=== PATIENT | male | born 1970 | race Caucasian/White ===

== ENCOUNTER 2018-07-26 16:03 | Emergency (ER) | payer OTHER ==
[2018-07-26 16:03] VITALS: BMI 27.3
[2018-07-26] MEDS ORDERED: Morphine 4 MG/ML VIAL ONE (16:17)
[2018-07-26] MEDS ORDERED: Morphine 4 MG/ML VIAL IV ONE (16:21)
[2018-07-26] MEDS ORDERED: Lidocaine 2% MPF (5 ml) Inj ONE (16:30)
[2018-07-26] MEDS ORDERED: Lidocaine 2% Inj (20ml) INFIL ONE (16:31)
--- NOTE | 2018-07-26 16:58 | RAD ---
PROCEDURE: Radiographs of the Left Shoulder HISTORY: SHOULDER DISLOCATION COMPARISON: None available. FINDINGS: BONES: No acute displaced fracture. The distal clavicle and underlying ribs appear intact. JOINTS: Anterior dislocation. SOFT TISSUES: Soft tissue swelling. No evidence of radiopaque foreign body. IMPRESSION: Anterior dislocation. Soft tissue swelling.
--- NOTE | 2018-07-26 17:17 | RAD ---
Date of service: 07/26/2018 PROCEDURE: Left shoulder HISTORY: s/p reloc COMPARISON: 07/26/2018 at 4:27 p.m. TECHNIQUE: Single AP radiograph of the left shoulder FINDINGS: Status post close reduction of previously demonstrated anterior dislocation. No fracture identified. Acromioclavicular articulation appears intact. IMPRESSION: Successful close reduction left glenohumeral anterior dislocation.
--- NOTE | 2018-07-26 17:31 | C.PDOC ---
History Of Present Illness 48 y/o male presents to the ED for evaluation of left shoulder pain and deformity, onset just prior to arrival. Patient gives varying story regarding the injury, initially stating he fell while at home. Later in the interview patient states he was here visiting someone and it happened while closing his car door. Then later stating he slipped and fell in the hallway of the hospital. Patient reports having right shoulder dislocation in the past, but never left. [place] [employer]PLICATIONS DEVELOPER reviewed, patient has extensive oxycodone and xanax regimen for chronic back pain. Patient appears to have intermittent bizarre behavior, at times he appears to have no pain and intermittently will scream in pain. 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 Time Seen by Provider: 07/26/18 16:17 Chief Complaint (Nursing): Upper Extremity Problem/Injury History Per: Patient History/Exam Limitations: no limitations Onset/Duration Of Symptoms: Mins Current Symptoms Are (Timing): Still Present Quality: "Pain" Past Medical History Reviewed: Historical Data, Nursing Documentation, Vital Signs Vital Signs: Last Vital Signs Temp 97.4 F L 07/26/18 16:24 Pulse 72 07/26/18 16:24 Resp 24 07/26/18 16:24 BP 157/121 H 07/26/18 16:24 Pulse Ox 98 07/26/18 16:24 - Medical History PMH: HTN, Chronic Pain - [facility] Procedures CL REDUC DISLOC-SHOULDER (03/11/07) Family History: States: Unknown Family Hx - Social History Hx Alcohol Use: No Hx Substance Use: No - Immunization History Hx Tetanus Toxoid Vaccination: Yes Hx Influenza Vaccination: Yes Hx Pneumococcal Vaccination: Yes Review Of Systems Constitutional: Negative for: Fever Cardiovascular: Negative for: Chest Pain Respiratory: Negative for: Shortness of Breath Gastrointestinal: Negative for: Vomiting, Abdominal Pain Musculoskeletal: Positive for: Shoulder Pain (and dislocation) Neurological: Negative for: Weakness, Numbness, Incoordination Physical Exam - Physical Exam Appears: Non-toxic, In Acute Distress (mild painful distress) Skin: Warm, Dry Head: Atraumatic, Normacephalic Eye(s): bilateral: Normal Inspection Oral Mucosa: Moist Neck: Normal ROM Chest: Symmetrical Cardiovascular: Rhythm Regular, No Murmur Respiratory: Normal Breath Sounds, No Accessory Muscle Use Extremity: Tenderness (left shoulder), Capillary Refill (< 2 sec), Deformity (+ gross deformity to left shoulder), Other (Limited ROM secondary to pain, neurovascularly intact distally) Pulses: Left Radial: Normal, Right Radial: Normal Neurological/Psych: Oriented x3 Gait: Steady ED Course And Treatment O2 Sat by Pulse Oximetry: 98 (RA) Pulse Ox Interpretation: Normal - Other Rad L shoulder X-Ray: Interpreted by Me (+ disloc, no fx) - CT Scan/US L shoulder Other Rad Studies (CT/US): Interpreted By Me (+ good reloc, no fx) Reevaluation Time: 17:29 Reassessment Condition: Improved Procedure: Blank - Time Out Time Out: Side verified, Site verified, Patient ID confirmed - Procedure Procedure:: Shoulder reduction - Consent obtained: Consent obtained: Verbal - Performed by: Performed by:: Mid-level provider (MAUREEN Lindsay) - Anesthetic Technique Anesthetic Technique: Regional block (Intra-articular Lido), Intravenous pain meds (4mg IV Morphine) - Topical: Local/Regional Anesthetic:: Lidocaine 2% - Systemic Analgesia Systemic Analgesia:: Morphine - Location Location: Left, Shoulder - Description Discription of Procedure: 07/26/18 (External rotation) - Result Result: Successful - Post-Procedure Post-procedure:: Neurovascular status nml, Vital signs stable - Patient Tolerated Procedure Patient Tolerated Procedure:: Well Medical Decision Making Medical Decision Making: Impression: L shoulder disloc without fx of ? cinematic- story changes from spontaneous while closing a door, fall @ home, or fall in hospital hallways [facility] reviewed- extensive Oxycodone/Xanax regimen for anxiety and chronic back pains, but pt without apparent back pains. ? why pt did not take any Oxycodone @ home for severe shoulder pain Plan: 4 mg IV morphine given for pain control. Intra-articular lido used for regional anesthetic. Shoulder successfully reduced on second attempt. Patient appears to be resting comfortably s/p reduction. X-ray confirms successful relocation. Will d/c pt home Disposition Doctor Will See Patient In The: Office Counseled Patient/Family Regarding: Studies Performed, Diagnosis - Disposition Referrals: [facility] [Outside] [facility] [Outside] Jimmy Uribe MD [Staff Provider] - Lelo Bowser MD [Non-Staff] - Disposition: HOME/ ROUTINE Disposition Time: 17:31 Condition: GOOD Additional Instructions: ice packs and sling for L shoulder pain outpatient follow-up with Dr. Uribe- Ortho [employer] Plate [employer]- Continue the Oxycodone and Xanax already precribed chronically Instructions: Shoulder Dislocation Forms: [employer] (Maltese) - Clinical Impression Clinical Impression: Shoulder dislocation - Scribe Statement The provider has reviewed the documentation as recorded by the eDnizibmelo Neumann Provider Attestation: All medical record entries made by the Denizibe were at my direction and person ally dictated by me. I have reviewed the chart and agree that the record accurately reflects my personal performance of the history, physical exam, medical decision making, and the department course for this patient. I have also personally directed, reviewed, and agree with the discharge instructions and disposition.
[2018-07-26 17:50] VITALS: BP 149/99; PULSE 79; RESP 15; TEMP 98.6
[2018-07-26 19:25] VITALS: O2SAT 98
== END 2018-07-26 17:49 | disposition home or self-care (01) ==
LOC: C.ER 16:03
DX: S43.005A Unspecified dislocation of left shoulder joint, initial encounter (principal); W01.0XXA Fall on same level from slipping, tripping and stumbling without subsequent striking against object, initial encounter
CPT/HCPCS: 23650; 73020; 73030; 96374; 99284; J2270